=== PATIENT | male | born 1950 | race Caucasian/White ===

== ENCOUNTER → 2019-09-30 | Outpatient (CLI) | payer OTHER ==
[~2019-09-30] MED LIST: ADULT LOW DOSE81 MG PO; ALEVE220 MG PO; AMBIEN 5 MG TABL5 M1 PO; ASPIR 8181 MG PO; ATORVASTATIN CA80 MG PO; BENICAR HCT 201 EACH PO; BYSTOLIC 5 MG5 M1 PO; CENTRUM SILVER1 EAC2 PO; GLUCOSAMINE CH1 EAC2 PO; LEVOTHYROXINE 0.15MG PO; PERCOCET 10-321 EACH PO; VASCEPA1 GM PO; VITAMIN E400 UNI3 PO; XARELTO10 MG PO
== END ==
LOC: CAT 11:46
DX: Z13.6 Encounter for screening for cardiovascular disorders (principal); E78.00 Pure hypercholesterolemia, unspecified; I25.10 Atherosclerotic heart disease of native coronary artery without angina pectoris

== ENCOUNTER → 2019-09-30 | Outpatient (CLI) | payer OTHER | LOC: SJCVC 14:53 | DX: R00.1 Bradycardia, unspecified (principal); E78.00 Pure hypercholesterolemia, unspecified; I10 Essential (primary) hypertension; E78.1 Pure hyperglyceridemia; Z87.891 Personal history of nicotine dependence; Z79.82 Long term (current) use of aspirin; Z79.899 Other long term (current) drug therapy ==

== ENCOUNTER → 2020-05-18 | Outpatient (CLI) | payer OTHER | LOC: SJCVCIMAG 06:58 | PROVIDERS: ATTEND Internal Medicine Cardiovascular Disease | DX: I25.10 Atherosclerotic heart disease of native coronary artery without angina pectoris (principal); I49.1 Atrial premature depolarization; E78.5 Hyperlipidemia, unspecified; I10 Essential (primary) hypertension; Z79.899 Other long term (current) drug therapy ==

== ENCOUNTER → 2021-02-09 | Outpatient (CLI) | payer OTHER | LOC: SJCVC 09:35 | PROVIDERS: ATTEND Internal Medicine Cardiovascular Disease | DX: I25.118 Atherosclerotic heart disease of native coronary artery with other forms of angina pectoris (principal); I10 Essential (primary) hypertension; E78.00 Pure hypercholesterolemia, unspecified; R00.1 Bradycardia, unspecified; M19.90 Unspecified osteoarthritis, unspecified site; Z87.891 Personal history of nicotine dependence; Z72.89 Other problems related to lifestyle; Z79.82 Long term (current) use of aspirin; Z79.899 Other long term (current) drug therapy ==